=== PATIENT | female | born 1960 | race Caucasian/White ===

== ENCOUNTER 2016-08-17 22:23 | Emergency (ER) | payer OTHER ==
[~2016-08-17] VITALS: Ht 165.1 cm; Wt 79.9 kg
[~2016-08-17 22:23] MED LIST: ALPR-138 PO; HYDR-2768 PO; IBUP800T23 PO; LEXA10TA PO; PERC5TAB12 PO; TOPI25CA PO; ZYRT10TA12 PO
[2016-08-17 22:30] VITALS: BP 109/74; PULSE 83; RESP 18; TEMP 97.6; O2SAT 96
[2016-08-17] MEDS ORDERED: TETANUS/DIPHTHERIA TOXOID ADULT 0.5 ML VIAL IM ONE (22:45)
[2016-08-17] MEDS ORDERED: LEXA20TA PO (22:57)
[2016-08-17] MEDS ORDERED: ALPR.25 PO (22:57)
[2016-08-17] MEDS ORDERED: HYDR25TA5 PO (22:57)
[2016-08-17] MEDS ORDERED: HYDR-3533 PO (22:57)
[2016-08-17] MEDS ORDERED: TOPA25TA8 PO (22:57)
--- NOTE | 2016-08-17 23:01 | PD ---
HPI Chief Complaint: Laceration/Skin Injury Time Seen by Provider: 22:45 Travel History International Travel<30 days: No Contact w/Intl Traveler<30days: No Traveled to known affect area: No History of Present Illness HPI The patient was seen and examined in the presence of the nurse. This patient complains of stumbling and falling and striking her head. She is a daily drinker and had 5 vodka drinks this evening. This caused her to trip and she hit the left side of her forehead one hour ago. She denies LOC or headache. No neck symptoms. She suffered a laceration to the left forehead. Duration is One hour. Symptoms severity is moderate. No alleviating factors PFSH Past Medical History Blood Disorders: No Anxiety: Yes Depression: Yes Heart Rhythm Problems: No Cancer: No Cardiac Catheterization: No Cardiovascular Problems: No High Cholesterol: Yes Chest Pain: Yes Congestive Heart Failure: No COPD: Yes Diabetes: No Diminished Hearing: No Endocrine: No Genitourinary: No Hypertension: Yes Immune Disorder: No Musculoskeletal: No Neurologic: No Psychiatric: No Reproductive: No Respiratory: Yes (COPD) Immunizations Current: Yes (FLU SHOT-2007) Migraines: Yes Myocardial Infarction: No ?: Not Menopausal: Yes Tubal Ligation: Yes Past Surgical History Coronary Artery Bypass Graft: No Social History Alcohol Use: Yes ("MOST DAYS") Tobacco Use: Yes (1PPD) Substance Use: No Allergies-Medications (Allergen,Severity, Reaction): Coded Allergies: Chantix (Verified Allergy, Intermediate, ANGRY, 08/17/16) Keflex (Verified Adverse Reaction, Intermediate, INTERFERES WITH BP MED, ) Reported Meds & Prescriptions Reported Meds & Active Scripts Active Reported Lortab (Hydrocodone-Acetaminophen) 5-325 Mg Tab 1 Tab PO Q4H PRN Hydrochlorothiazide 25 Mg Tab 25 Mg PO DAILY Topamax (Topiramate) 25 Mg Tab 25 Mg PO BID Lexapro (Escitalopram Oxalate) 20 Mg Tab 20 Mg PO DAILY Xanax (Alprazolam) 0.25 Mg Tab 0.25 Mg PO Q8H PRN Review of Systems General / Constitutional: No: Fever Eyes: No: Visual changes HENT: No: Headaches Cardiovascular: No: Chest Pain or Discomfort Respiratory: No: Shortness of Breath Gastrointestinal: No: Abdominal Pain Genitourinary: No: Dysuria Musculoskeletal: No: Pain Skin: No Rash Neurologic: No: Weakness Psychiatric: Positive: Substance Abuse, No: Depression Endocrine: No: Polydipsia Hematologic/Lymphatic: No: Easy Bruising Physical Exam Narrative GENERAL: Well-nourished, well-developed patient in no apparent distress. SKIN: Focused skin assessment reveals no rash and nodules. Skin is Warm and dry. HEAD: 2.5 cm laceration of the left forehead. Normocephalic. EYES: Pupils equal and round. No scleral icterus. No injection or drainage. ENT: No nasal bleeding or discharge. Mucous membranes pink and moist. NECK: Trachea midline. No JVD. No midline tenderness CARDIOVASCULAR: Regular rate and rhythm. No murmur appreciated. RESPIRATORY: No accessory muscle use. Clear to auscultation. Breath sounds equal bilaterally. GASTROINTESTINAL: Abdomen soft, non-tender, nondistended. Hepatic and splenic margins not palpable. MUSCULOSKELETAL: No obvious deformities. No clubbing. No cyanosis. No edema. NEUROLOGICAL: Awake and alert. No obvious cranial nerve deficits. Motor grossly within normal limits. Normal speech. PSYCHIATRIC: Appropriate mood and affect; insight and judgment reduced. Data Data Last Documented VS Vital Signs Date Time Temp Pulse Resp B/P Pulse Ox O2 Delivery O2 Flow Rate FiO2 08/17/16 22:43 14 08/17/16 22:30 97.6 83 109/[address] Brain W/O Iv Contrast(Rout) (08/17/16 ) Tetanus/Diphtheria Tox Adult (Tetanus/Di (08/17/16 22:45) MDM Medical Decision Making Medical Screen Exam Complete: Yes Emergency Medical Condition: Yes Medical Record Reviewed: Yes Differential Diagnosis Intracranial hemorrhage, concussion, skull fracture, laceration Narrative Course I have reviewed the patient's electronic medical record. Given the patient's intoxication and therefore unreliable history I have ordered brain CT. LACERATION LOCATION: Left forehead LENGTH: 2.5 cm NUMBER OF STITCHES/SERA: 3 REPAIR: The area of the laceration was prepped with Betadine and sterilely draped. No anesthesia needed. The wound was copiously irrigated and explored without evidence of foreign body, tendon injury or neurovascular injury. The wound was closed using 5-0 Ethilon in a single layer repair. A sterile dressing was applied. The patient was advised to keep the dressing clean and dry. Patient tolerated the procedure well. I gave her a tetanus booster Brain CT is negative for intracranial injury Suture removal in 5 days Diagnosis Primary Impression: Head injury due to trauma Qualified Code: S09.90XA - Head injury due to trauma, initial encounter Additional Impression: Laceration of skin of forehead without complication Qualified Code: S01.81XA - Laceration of skin of forehead without complication , initial encounter Additional Instructions: The patient was advised to follow up with their physician and return if they worsen. Suture removal in [address] [facility] alcohol rehabilitation services Med/Other Pt SpecificInfo: Other Disposition: 01 DISCHARGE HOME Condition: Stable Diogenes James MD Aug 17, 2016 23:01
--- NOTE | 2016-08-17 23:37 | RADRPT ---
EXAM DATE/TIME: 08/17/2016 23:10 [facility] COMPARISON: No previous studies available for comparison. INDICATIONS : Trauma. Fall. Left temporal laceration. RADIATION DOSE: 61.50 CTDIvol (mGy) MEDICAL HISTORY : Hypertension. Chronic obstructive pulmonary disease. SURGICAL HISTORY : None. ENCOUNTER: Initial ACUITY: 1 day PAIN SCALE: 0/10 LOCATION: Left temporal TECHNIQUE: Multiple contiguous axial images were obtained of the head. Using automated exposure control and adj ustment of the mA and/or kV according to patient size, radiation dose was kept as low as reasonably a chievable to obtain optimal diagnostic quality images. DICOM format image data is available electro nically for review and comparison. FINDINGS: CEREBRUM: The ventricles are normal for age. No evidence of midline shift, mass lesion, hemorrhage or acute in farction. No extra-axial fluid collections are seen. POSTERIOR FOSSA: The cerebellum and brainstem are intact. The 4th ventricle is midline. The cerebellopontine angle i s unremarkable. EXTRACRANIAL: The visualized portion of the orbits is intact. Minimal ethmoid sinus disease. SKULL: The calvaria is intact. No evidence of skull fracture. CONCLUSION: 1. No acute intracranial abnormality. 2. Minimal ethmoid sinus disease. Beni Paula MD on August 17, 2016 at 23:35 Board Certified Radiologist. This report was verified electronically.
== END 2016-08-17 23:58 | disposition home or self-care (01) ==
LOC: PHED 22:23
DX: S01.81XA Laceration without foreign body of other part of head, initial encounter (principal); I10 Essential (primary) hypertension; J44.9 Chronic obstructive pulmonary disease, unspecified; E78.00 Pure hypercholesterolemia, unspecified; F17.210 Nicotine dependence, cigarettes, uncomplicated
CPT/HCPCS: 12011; 70450; 90471; 90714